=== PATIENT | male | born 1960 | race Asian ===

== ENCOUNTER 2025-01-30 09:10 | Day surgery (SDC) | payer MEDICARE, MEDICAID, SELFPAY ==
--- NOTE | 2025-01-29 07:00 | EKG_ITS ---
[facility] Test Date: 2025-01-29 Pat Name: JOSE STOAVLL Department: Room: - Gender: Male [employer] Thread: HERBER : 1960 Requested By: Ryan Johnson Order Number: [id number] Reading MD: Ryan Johnson Measurements Intervals [place] Rate: 73 P: 66 [place]: 162 QRS: 74 QRSD: 86 T: 43 QT: 407 QTc: 450 Interpretive Statements SINUS RHYTHM MODERATE ST DEPRESSION [0.05+ mV ST DEPRESSION] No previous ECG available for comparison /[id number]/[id number].pdf
[2025-01-29 10:37] VITALS: BMI 29.5
--- NOTE | 2025-01-29 10:58 | SUR.PREOP ---
Pt's language in [facility], there was no foreign language interpreter available on the foreign language interpreter line. Daughter in law Jody interpreted.
[2025-01-29 11:19] LABS: Collection Type, Urine Clean Catch; Squamous Epithelial Cell,Urine 0 /hpf (0-5)
[2025-01-29 12:06] LABS: Alanine Aminotransferase 18 U/L (10-49); Albumin, Serum 4.4 gm/dL (3.4-4.8); Albumin/Globulin Ratio 1.3 (1.2-2.2); Alkaline Phosphatase 60 U/L (46-116); Anion Gap 9 (7-16); Aspartate Amino Transferase 26 U/L (0-34); BUN/Creatinine Ratio 10 Ratio (12-20); Bilirubin,Total 0.7 mg/dL (0.3-1.2); Blood Urea Nitrogen 11 mg/dL (9-23); Calcium 8.9 mg/dL (8.3-10.6); Calcium (Corrected) 8.9 mg/dL (8.5-10.1); Carbon Dioxide 26.1 mMol/L (20.0-31.0); Chloride 108 mMol/L (98-107); Creatinine (Component) 1.1 mg/dL (0.6-1.3); Estimated Creatinine Clearance 47.9 mL/min (>60); Globulin 3.3 gm/dL (2.3-3.5); Glucose 100 mg/dL (74-106); Osmolality,Calculated 284 (275-295); Potassium 3.8 mMol/L (3.4-5.1); Sodium 143 mMol/L (136-145); Total Protein 7.7 gm/dL (5.7-8.2); eGFR > 60 See Note
[2025-01-29 12:06] LABS: Bilirubin,Urine Negative (Negative); Blood,Urine Negative (Negative); Clarity,Urine Clear (Clear/Hazy); Color,Urine Lt-Yellow (Lt Yel-Yel); Glucose, Urine Negative (Negative); Ketones,Urine Negative (Negative); Leukocyte Esterase,Urine Negative (Negative); Nitrite,Urine Negative (Negative); Protein,Urine Negative (Neg - Trace); RBC,Urine 2 /hpf (0-3); Urobilinogen,Urine Negative mg/dL (0.0-1.0); WBC,Urine 2 /hpf (0-5)
[2025-01-29 12:09] LABS: Basophils % (Auto) 1 % (0-2.5); Eosinophils # (Auto) 0.4 Thou/mm3 (0.0-0.5); Eosinophils % (Auto) 7 % (0-10); Hematocrit 45.8 % (41.0-53.0); Hemoglobin 15.5 g/dL (13.5-16.0); Immature Granulocytes % (Auto) 0 % (0-0); Immature Granulocytes Auto 0.01 Thou/mm3 (0.00-0.00); Lymphocytes # (Auto) 1.8 Thou/mm3 (1.0-4.8); Lymphocytes % (Auto) 31 % (10-50); Mean Corpuscular HGB Conc 33.8 g/dl (31.0-37.0); Mean Corpuscular Hemoglobin 30.3 pg (25.0-35.0); Mean Corpuscular Volume 90 fL (80-100); Monocytes # (Auto) 0.3 Thou/mm3 (0.0-0.8); Monocytes % (Auto) 6 % (0-12); Neutrophils # (Auto) 3.3 Thou/mm3 (1.8-7.7); Neutrophils % (Auto) 56 % (37-80); Nucleated Red Blood Cell % 0 /100 WBC (0); Platelet Count 215 Thou/mm3 (140-440); RDW Standard Deviation 41.8 fL (35.1-43.9); Red Blood Count 5.11 Miln/mm3 (4.50-5.90); White Blood Count 5.9 Thou/mm3 (3.8-10.6)
--- NOTE | 2025-01-30 07:48 | ESHP_ITS ---
RE: NEELA STOVALL : 1960 DATE OF ADMISSION: 01/29/2025 HISTORY OF PRESENT ILLNESS: A 65-year-old gentleman with elevated PSA who was referred to me. He has nocturia none. Urine flow is fair. There is no . No history of gross hematuria. PAST SURGICAL HISTORY: Previous surgery is none. PAST MEDICAL HISTORY: There is no history of diabetes mellitus. He does have a history of hypertension and he takes losartan and trazodone. SOCIAL HISTORY: He has four children. ALLERGIES: NO KNOWN. His PSA has been 5.7. PHYSICAL EXAMINATION: HEENT: Normal. NECK: Supple. LUNGS: Clear. CARDIOVASCULAR: Heart sounds are normal. ABDOMEN: Soft without any organomegaly. No guarding. No rigidity. EXTREMITIES: Normal. GENITOURINARY: Phallus is normal. Testes are down in scrotum. RECTAL: Reveals small to medium-sized prostate. His PSA is 5.7, next time is 5.9. PLAN: He is now scheduled to have cystoscopy and transrectal prostatic ultrasound with ultrasound-guided prostatic needle biopsy. Planned procedure, risks and complications have been discussed with the patient. The patient has understood them and agreed to proceed. DT: 14:55:55 TT: 16:21:00 Ref: [id number] - TID: [id number]
[2025-01-30 09:58] VITALS: BP 155/97; PULSE 83; RESP 17; TEMP 37.1; O2SAT 98; BMI 27.5
[2025-01-30] MEDS: RINGERS LACTATED 1000 ML 1,000 ML 20 ML IV (10:07)
[2025-01-30 10:47] VITALS: BP 154/92; PULSE 82; RESP 15; TEMP 36.7; O2SAT 100
[2025-01-30 10:52] VITALS: BP 129/89; PULSE 77; RESP 18; O2SAT 97
[2025-01-30 10:57] VITALS: BP 144/96; PULSE 79; RESP 15; O2SAT 99
[2025-01-30 11:10] VITALS: BP 131/97; PULSE 79; RESP 15; O2SAT 100
[2025-01-30 11:20] VITALS: BP 152/90; PULSE 80; RESP 23; TEMP 36.7; O2SAT 100
--- NOTE | 2025-01-30 11:23 | SUR.PHASEII ---
1047: Pt received in [facility] via gurney. Report from Vivek CARMICHAEL and Dr. Caicedo. Pt groggy, but awake. Resp even, unlabored. VS stable. No c/o pain, discomfort. 1115: Pt more awake, alert. Resp even, unlabored. VS stable. No c/o pain. Sitting up tolerating po fluids with no difficulty swallowing and no n/v.
--- NOTE | 2025-01-30 14:46 | SUR.PHASEII ---
1135: Pt fully awake, oriented x3. VS stable. Denies pain. Assisted to restroom. Ambulation steady. Pt and daughter in law stated understanding of discharge instructions. Pt discharged from [facility] in stable condition.
--- NOTE | 2025-01-30 16:21 | ESOP_ITS ---
RE: NEELA STOVALL : 1960 DATE OF OPERATION: 01/30/2025 PREOPERATIVE DIAGNOSES: Prostatic obstruction, elevated PSA of 5.7 and 5.9. PROCEDURE PERFORMED: Cystoscopy, urethral dilatation, transrectal prostatic ultrasound with ultrasound-guided prostatic needle biopsy. ANESTHESIA: Monitored anesthesia by Dr. Buenrostro. INDICATION: The patient is a 65-year-old gentleman with nocturia and frequency. He has an elevated PSA of 5.7. Repeat is 5.9. Rectally, he has a medium-sized prostate without any hard nodules. He is now scheduled to have cystoscopy and transrectal prostatic ultrasound with ultrasound-guided prostatic needle biopsy. Planned procedure, risks, and complications have been discussed with the patient. The patient understood them and agreed to proceed. DESCRIPTION OF PROCEDURE: After the patient was brought to the operating table under adequate monitored anesthesia by Dr. Buenrostro, he was placed in dorsal lithotomy position. Parts were prepped and draped in the usual fashion. 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 Now I could insert a 19-Arabic cystoscope, urethra is open. Prostatic urethra revealed a moderately enlarged prostate, bilobed, residual urine 2 ounces and was found to be yellow and clear. There are no intravesical stones or tumors. Ureteral orifice are found to be normal in position and appearance. Scope was withdrawn. The patient was then turned to left lateral position. Transrectal prostatic ultrasound was carried out. Biopsies were obtained from both lobes. Using ultrasound guidance, in all about 10 biopsies were obtained. Prostatic volume was measured at 45 cubic cm. The patient tolerated the entire procedure well and left the room in good condition. DT: 10:59:24 TT: 16:18:00 Ref: [id number] - TID: [id number]
== END 2025-01-30 11:35 | disposition home or self-care (01) ==
PROVIDERS: Anesthesiology; PCP Licensed Practical Nurse; Referring Provider Surgery; Visit Provider Surgery
PROC: 0TJB8ZZ Inspection of Bladder, Via Natural or Artificial Opening Endoscopic (ICD-10-PCS; CPT 52000; principal; 2025-01-30 11:15)
DX: N40.1 Benign prostatic hyperplasia with lower urinary tract symptoms (principal); R97.20 Elevated prostate specific antigen [PSA]; R35.1 Nocturia; Z01.810 Encounter for preprocedural cardiovascular examination; I10 Essential (primary) hypertension
CPT/HCPCS: 52281; 55700; 36415; 80053; 81001; 85025; 87086; 93005; A4217; A4649; J0694; J2250; J2704; J3010; J7120